=== PATIENT | female | born 1965 | race Asian ===

== ENCOUNTER 2019-01-01 06:09 | Emergency (ER) | payer BC ==
[~2019-01-01] VITALS: Ht 162.6 cm; Wt 71.4 kg
[~2019-01-01 06:09] MED LIST: BEN50 PO; CYCL10TA7 PO; ESOM20CA PO; FAMO-96 PO; HYDR-3498 PO; IBUP-1542 PO; NAPR-985 PO; OMEP20CA9 PO; ONDA4TAB35 PO; PANT40TA3 PO; PRED20TA PO
[2019-01-01 06:13] VITALS: BP 126/58; PULSE 68; RESP 17; Ht 162.6 cm; Wt 71.4 kg
[2019-01-01] MEDS ORDERED: KETOROLAC 30 MG INJ IV STA (06:19)
[2019-01-01] MEDS ORDERED: SOD CHLORIDE 0.9% 1,000 ML IV STA (06:19)
[2019-01-01] MEDS ORDERED: FAMOTIDINE 20 MG INJ IV STA (06:19)
[2019-01-01] MEDS ORDERED: ONDANSETRON 4 MG INJ IV STA (06:19)
[2019-01-01] MEDS ORDERED: DICYCLOMINE 10 MG CAP PO ONE (06:30)
[2019-01-01] MEDS ORDERED: FAMO-96 PO (08:56)
[2019-01-01] MEDS ORDERED: ONDA4TAB14 PO (08:56)
[2019-01-01] MEDS ORDERED: ACET325T33 PO (08:56)
[2019-01-01] MEDS ORDERED: HYDR-4011 PO (08:56)
--- NOTE | 2019-01-01 13:32 | ERD ---
ER Documentation Chief Complaint Chief Complaint abdominal pain since yesterday, nausea x 30 minutes ago HPI 53-year-old female presenting with abdominal pain. Patient states she had this abdominal pain for the last day with nausea. She describes as a burning type cramping sensation. Denies any vomiting. Denies fevers. Has a history of gastritis. Last bowel movement was yesterday. Denies any chest pain or shortness of breath. No coughing. No fevers. ROS All systems reviewed and are negative except as per history of present illness. Medications Home Meds Active Scripts Famotidine* (Pepcid*) 20 Mg Tablet, 20 MG PO BID for 4 Days, #30 TAB Prov:ROLAND MARTEL PA-C 01/01/19 Acetaminophen* (Tylenol*) 325 Mg Tablet, 2 TAB PO Q6 PRN for PAIN AND OR ELEVATED TEMP, #20 TAB Prov:ROLAND MARTEL PA-C 01/01/19 Hydrocodone/Acetaminophen ([place] 5-325 Tablet) 1 Each Tablet, 1 TAB PO Q6H PRN for PAIN, #7 TAB Prov:ROLAND MARTEL PA-C 01/01/19 Ondansetron (Ondansetron Odt) 4 Mg Tab.rapdis, 4 MG PO Q6H PRN for NAUSEA AND/OR VOMITING, #10 TAB Prov:ROLAND MARTEL PA-C 01/01/19 Prednisone* (Prednisone*) 20 Mg Tab, 40 MG PO DAILY for 4 Days, TAB Prov:WALKER MARTINEZ PA-C 07/21/18 Famotidine* (Pepcid*) 20 Mg Tablet, 20 MG PO BID for 4 Days, TAB Prov:WALKER MARTINEZ PA-C 07/21/18 Diphenhydramine Hcl* (Benadryl*) 50 Mg Cap, 50 MG PO Q6H PRN for ITCHING/RASH, #30 CAP Prov:WALKER MARTINEZ PA-C 07/21/18 Naproxen* (Naprosyn*) 500 Mg Tablet, 500 MG PO BID PRN for PAIN AND/OR INFLAMMATION, #30 TAB Prov:ADRIAN GORMAN PA-C 04/25/16 Ondansetron Hcl* (Zofran* ODT) 4 mg -ODT Tab.disper, 4 MG PO Q8 PRN for NAUSEA AND/OR VOMITING, #30 TAB Prov:PEYMAN HERNANDEZ [address] MAGISTRATE 08/29/15 Hydrocodone Bit-Acetaminophen* ([place]*) 5-325 Mg Tab, 1 TAB PO Q6 PRN for PAIN, #20 TAB Prov:PEYMAN HERNANDEZ. NIGHT COURT MAGISTRATE 08/29/15 Pantoprazole* (Protonix*) 40 Mg Tablet., 40 MG PO DAILY, #30 TAB Prov:PEYMAN HERNANDEZ. NIGHT COURT MAGISTRATE 08/29/15 Hydrocodone Bit-Acetaminophen* ([place]*) 5-325 Mg Tab, 1 TAB PO Q6 PRN for PAIN, #20 TAB Prov:PEYMAN HERNANDEZ NIGHT [address] MAGISTRATE 04/10/15 Ibuprofen* (Ibuprofen*) 600 Mg Tablet, 600 MG PO Q6H PRN for PAIN AND OR ELEVATED TEMP, #30 TAB Prov:PEYMAN HERNANDEZ NIGHT [address] MAGISTRATE 04/10/15 Cyclobenzaprine Hcl* (Cyclobenzaprine Hcl*) 10 Mg Tablet, 5 MG PO TID, #15 TAB Prov:PEYMAN HERNANDEZ NIGHT [address] MAGISTRATE 04/10/15 Reported Medications Esomeprazole Mag Trihydrate (Nexium) Unknown Strength Capsule., PO DAILY, #30 CAP 08/28/15 Omeprazole* (Prilosec*) 20 Mg Capsule., 20 MG PO DAILY 11/05/13 Allergies Allergies: Coded Allergies: Penicillins (Verified Allergy, Unknown, RASH, 12/15/11) PMhx/Soc History of Surgery: Yes (tubal ligation) Anesthesia Reaction: No Hx Neurological Disorder: No Hx Respiratory Disorders: No Hx Cardiac Disorders: No Hx Psychiatric Problems: No Hx Miscellaneous Medical Probl: No (gastritis) Hx Alcohol Use: No Hx Substance Use: No Hx Tobacco Use: No Smoking Status: Never smoker FmHx Family History: No diabetes, No coronary disease, No other Physical Exam Vitals Vital Signs Date Temp Pulse Resp B/P (MAP) Pulse Ox O2 O2 Flow FiO2 Time Delivery Rate 01/01/19 97.6 68 17 126/58 100 06:13 (80) Physical Exam GENERAL: The patient is well-appearing, well-nourished, in no acute distress HEENT: Atraumatic. Conjunctivae are pink. Pupils equal, round, and reactive to light. There is no scleral icterus. Tympanic membranes clear bilaterally. Oropharynx clear. NECK: C-spine is soft and supple. There is no meningismus. There is no cervical lymphadenopathy. CHEST: Clear to auscultation bilaterally. There are no rales, wheezes or rhonchi. HEART: Regular rate and rhythm. No murmurs, clicks, rubs or gallops. ABDOMEN: Normal active bowel sounds. No distention. No reproducible pain no rigidity fell on exam. BACK: No midline or flank tenderness. Result Diagram: 01/01/19 0624 01/01/19 0624 Results 24 hrs Laboratory Tests Test 01/01/19 06:24 01/01/19 07:32 White Blood Count 5.6 10^3/ul Red Blood Count 4.55 10^6/ul Hemoglobin 14.0 g/dl Hematocrit 42.3 % Mean Corpuscular Volume 93.0 fl Mean Corpuscular Hemoglobin 30.8 pg Mean Corpuscular Hemoglobin Concent 33.1 g/dl Red Cell Distribution Width 12.8 % Platelet Count 133 10^3/UL Mean Platelet Volume 10.3 fl Immature Granulocytes % 0.400 % Neutrophils % 43.3 % Lymphocytes % 31.1 % Monocytes % 12.6 % Eosinophils % 11.5 % Basophils % 1.1 % Nucleated Red Blood Cells % 0.0 /100WBC Immature Granulocytes # 0.020 10^3/ul Neutrophils # 2.4 10^3/ul Lymphocytes # 1.7 10^3/ul Monocytes # 0.7 10^3/ul Eosinophils # 0.6 10^3/ul Basophils # 0.1 10^3/ul Nucleated Red Blood Cells # 0.0 10^3/ul Urine Color STRAW Urine Clarity SLIGHTLY CLOUDY Urine pH 6.0 Urine Specific [place] 1.006 Urine Ketones NEGATIVE mg/dL Urine Nitrite NEGATIVE mg/dL Urine Bilirubin NEGATIVE mg/dL Urine Urobilinogen NEGATIVE mg/dL Urine Leukocyte Esterase TRACE Chris/ul Urine Microscopic RBC 2 /HPF Urine Microscopic WBC 2 /HPF Urine Squamous Epithelial Cells FEW /HPF Urine Bacteria FEW /HPF Urine Hemoglobin 1+ mg/dL Urine Glucose NEGATIVE mg/dL Urine Total Protein NEGATIVE mg/dl Sodium Level 140 mmol/L Potassium Level 4.0 mmol/L Chloride Level 106 mmol/L Carbon Dioxide Level 26 mmol/L Anion Gap 8 Blood Urea Nitrogen 15 mg/dl Creatinine 0.58 mg/dl Est Glomerular Filtrat Rate mL/min > 60 mL/min Glucose Level 106 mg/dl Calcium Level 8.5 mg/dl Total Bilirubin 0.5 mg/dl Direct Bilirubin 0.00 mg/dl Indirect Bilirubin 0.5 mg/dl Aspartate Amino Transf (AST/SGOT) 40 IU/L Alanine Aminotransferase (ALT/SGPT) 27 IU/L Alkaline Phosphatase 77 IU/L Total Protein 8.5 g/dl Albumin 4.3 g/dl Globulin 4.20 g/dl Albumin/Globulin Ratio 1.02 Lipase 87 U/L POC Beta HCG, Qualitative NEGATIVE Current Medications Medications Dose Sig/Joy Start Time Status Last (Trade) Ordered Route PRN Stop Time Admin Dose Reason Admin Sodium 1,000 ml @ Q1H STAT 01/01/19 DC 01/01/19 Chloride 1,000 mls/hr IV 06:19 01/01/19 06:32 07:18 Ondansetron 4 mg ONCE STAT 01/01/19 DC 01/01/19 HCl (Zofran IV 06:19 01/01/19 06:32 Inj) 06:21 Famotidine 20 mg ONCE STAT 01/01/19 DC 01/01/19 (Pepcid Iv) IV 06:19 01/01/19 06:32 06:21 Ketorolac 30 mg ONCE STAT 01/01/19 DC 01/01/19 Tromethamine IV 06:19 01/01/19 07:40 (Toradol) 06:21 Dicyclomine 10 mg ONCE ONCE 01/01/19 DC 01/01/19 HCl PO 06:30 01/01/19 06:32 (Bentyl) 06:31 Procedures/MDM DIAGNOSTIC IMAGING REPORT Patient: SHERWIN BELTRE : 1965 Age: 53 Sex: F MR #: [id number] DOS: 01/01/19618 Ordering MD: HOWIE MARTEL PA-C Location: E Room/Bed: PROCEDURE: CT ABDOMEN AND PELVIS WITHOUT CONTRAST CLINICAL INDICATION: Abdominal pain. TECHNIQUE: CT of the abdomen and pelvis was performed without intravenous contrast. Oral contrast was not administered prior to the examination. Coronal and sagittal reformatted images were obtained from the axial source images. Images were reviewed on a high-resolution PACS workstation. DICOM images are available. Dose information: Based on a 32 cm phantom, the estimated radiation dose (CTDIvol mGy) for each series in this exam is 10.64. The estimated cumulative dose (DLP mGy-cm) is 610.31. One or more of the following dose reduction techniques were used: - Automated exposure control. - Adjustment of the mA and/or kV according to patient size. - Use of iterative reconstruction technique. COMPARISON: CT abdomen pelvis 08/29/2015. FINDINGS: In the absence of intravenous contrast, the study constitutes a limited assessm ent of the solid organs, bowel and vessels. LUNG BASES: There is dense air space disease in the posterior right middle lobe likely to reflect pneumonia. There is bibasilar dependent subsegmental ate lectasis. ABDOMEN/PELVIS: Liver: Diffuse decreased attenuation likely consistent with hepatic steatosis. Gallbladder: Normal noncontrast appearance. Bile ducts: No intrahepatic or extrahepatic biliary duct dilatation. Spleen: Normal noncontrast appearance. Pancreas: Normal noncontrast appearance. Adrenal glands: Normal noncontrast appearance. Kidneys and ureters: Normal noncontrast appearance. Aorta and IVC: Normal size. Lymph nodes: Normal noncontrast appearance. Gastrointestinal tract: The stomach is unremarkable. Small bowel loops are non dilated. Retained fecal matter is present in the distal small bowel and throughout the colon likely reflecting chronic constipation there are scattered colonic diverticula without diverticulitis. Appendix: The appendix is normal. Bladder: Normal noncontrast appearance. Pelvic Organs: Normal noncontrast appearance. Peritoneal cavity: No free fluid or free intraperitoneal air. Abdominal wall: Normal noncontrast appearance. MUSCULOSKELETAL: Bones: No acute fracture.No suspicious bone lesions. IMPRESSION: 1. Dense infiltrates of the posterior right middle lobe likely to reflect pneumonia. 2. Decreased hepatic attenuation without discrete mass favored to represent hepatic steatosis. Please note that in the absence of intravenous contrast the study does not evaluate the patency of the vasculature. 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 on 01/01/2019 with instructions to provide the results of this examination to the patient's concrete plant laborer. ER Course: 1 L normal saline given ED. Toradol, Bentyl and Zofran given in ED. On reevaluation patient symptoms had improved. MDM: 53-year-old female presenting with abdominal pain. Recent CT had findings showing pneumonia however patient is not afebrile with no cough and no shortness of breath. Patient's oxygen saturation is stable and I do not feel there is indication for antibiotic use. I have low suspicion for acute abdominal emergency. Patient is discharged with supportive medications. I have low suspicion for choledocholithiasis, cholecystitis, cholangitis or pancreatitis. Patient does not have right upper quadrant pain on exam. Blood work is within normal limits. I have low suspicion for for cardiac or pulmonary abnormality. Vitals are stable and patient exam is non-concerning. I have low suspicion for aortic aneurysm or dissection as patient does not have a pulsatile mass in the abdomen with no tearing pain. Patient is discharged with supportive medications and recommended to follow-up with primary care. Patient is told to follow-up with primary care. All questions answered at discharge Departure Diagnosis: Primary Impression: Abdominal pain Condition: Stable Patient Instructions: Abdominal Pain Referrals: [facility] YOU HAVE RECEIVED A MEDICAL SCREENING EXAM AND THE RESULTS INDICATE THAT YOU DO NOT HAVE A CONDITION THAT REQUIRES URGENT TREATMENT IN THE EMERGENCY DEPARTMENT. FURTHER EVALUATION AND TREATMENT OF YOUR CONDITION CAN WAIT UNTIL YOU ARE SEEN IN YOUR DOCTORS OFFICE WITHIN THE NEXT 1-2 DAYS. IT IS YOUR RESPONSIBILITY TO MAKE AN APPOINTMENT FOR FOLOW-UP CARE. IF YOU HAVE A PRIMARY DOCTOR --you should call your primary doctor and schedule an appointment IF YOU DO NOT HAVE A PRIMARY DOCTOR YOU CAN CALL OUR PHYSICIAN REFERRAL HOTLINE AT IF YOU CAN NOT AFFORD TO SEE A PHYSICIAN YOU CAN CHOSE FROM THE FOLLOWING [facility] [address] [facility] [address] [facility] [address] [facility] [address] [facility] [address] [facility]. [facility]. [address] Additional Instructions: FOLLOW UP WITH YOUR PRIMARY CARE PHYSICIAN TOMORROW.Return to this facility if you are not improving as expected. ROLAND MARTEL PA-C Jan 01, 2019 13:32
== END 2019-01-01 09:07 | disposition home or self-care (01) ==
LOC: E/R 06:09 → FTE 09:07
DX: R10.9 Unspecified abdominal pain (principal); R11.0 Nausea
CPT/HCPCS: 74176; 80053; 81001; 81025; 83690; 85025; J1885; J2405; J7030; 36415; 96361; 96374; 96375